=== PATIENT | female | born 1960 | race Caucasian/White ===

== ENCOUNTER 2017-11-13 13:59 | Emergency (ER) | payer OTHER ==
[~2017-11-13] VITALS: Ht 170.2 cm; Wt 99.8 kg
[~2017-11-13 13:59] MED LIST: ALBU90OI INH; AZIT250 PO; Amoxicillin500 MG PO; Ativan0.5 MG PO; CYCL10 PO; DICL25ER PO; DOXY100 PO; DULO30 PO; DULO60 PO; ERGO50000 PO; HYDACE5 PO; HYDGUAL120 PO; HYDHCL25 PO; LOPE2C PO; LORA1 PO; MELO7.5 PO; NAPR500; NAPR550 PO; Norco 5-325 Ta1 EACH PO; OXYACE5T PO; PRED20 PO; ROPI2 PO; RXALBOI INH; RXCYCL10 PO; RXHYDACE PO; RXNAPNA550 PO; Requip PO; SPACE CHAMBER1 EACH MC; TRAZ50 PO; Zithromax250 MG PO; Zofran8 MG PO; [UNRECOGNIZED DRUG - REMARK]
[2017-11-13 14:54] LABS: BASOPHILS ABSOLUTE AUTO 0.03 K/mm3 (0.00-0.23); BASOPHILS PERCENT AUTO 0 % (0-2); EOSINOPHILS ABSOLUTE AUTO 0.14 K/mm3 (0.00-0.68); EOSINOPHILS PERCENT AUTO 2 % (0-6); Hematocrit 43.3 % (33.0-51.0); Hemoglobin 14.5 g/dL (11.5-16.0); IMMATURE GRAN ABSOLUTE AUTO 0.02 K/mm3 (0.00-0.10); IMMATURE GRAN PERCENT AUTO 0 % (0-1); LYMPHOCYTES ABSOLUTE AUTO 2.92 K/mm3 (0.84-5.20); LYMPHOCYTES PERCENT AUTO 35 % (21-46); MONOCYTES ABSOLUTE AUTO 0.91 K/mm3 (0.16-1.47); MONOCYTES PERCENT AUTO 11 % (4-13); Mean Corpuscular HGB 30.3 pg (26.0-34.0); Mean Corpuscular HGB Conc 33.5 g/dL (31.5-36.5); Mean Corpuscular Volume 90 fL (80-100); Mean Platelet Volume 10.3 fL (9.1-12.4); NEUTROPHILS ABSOLUTE AUTO 4.34 K/mm3 (1.96-9.15); NEUTROPHILS PERCENT AUTO 52 % (41-73); Platelet Count 281 K/mm3 (150-400); RDW Coefficient Variation 13.2 % (11.7-14.2); RDW Standard Deviation 44.7 fL (35.1-46.3); Red Blood Cell Count 4.79 M/mm3 (3.80-5.20); White Blood Cell Count 8.36 K/mm3 (4.00-11.30)
[2017-11-13] MEDS ORDERED: Ativan1 MG SL (15:33)
[2017-11-13] MEDS ORDERED: Desyrel50 MG PO (15:33)
[2017-11-13] MEDS ORDERED: IBUP600 PO (15:33)
[2017-11-13 15:58] LABS: Troponin I <0.015 ng/mL (0.000-0.040)
[2017-11-13 16:09] LABS: Alanine Aminotransfer (ALT/SGP 21 U/L (12-78); Albumin/Globulin Ratio 1.3 (0.8-1.8); Alk Phos 46 U/L (50-136); Anion Gap 8 mmol/L (6-16); Aspartate Aminotrans (AST/SGOT 13 U/L (12-37); Bilirubin, Total 0.2 mg/dL (0.1-1.0); Blood Urea Nitrogen 12 mg/dL (8-24); Bun/Creatinine Ratio 22.3 (12.0-20.0); CO2, Blood 24 mmol/L (21-32); Chloride, Blood 108 mmol/L (98-108); Creatinine, Blood 0.54 mg/dL (0.40-1.00); Glomerular Filtration Rate >60 (60-); Glucose, Blood 93 mg/dL (70-99); Potassium, Blood 4.1 mmol/L (3.5-5.5); Sodium, Blood 140 mmol/L (136-145)
== END 2017-11-13 16:06 | disposition home or self-care (01) ==
LOC: ER 13:59
PROVIDERS: Emergency Medicine
DX: G47.00 Insomnia, unspecified (principal); F32.9 Major depressive disorder, single episode, unspecified; M25.562 Pain in left knee; F17.210 Nicotine dependence, cigarettes, uncomplicated
CPT/HCPCS: 36415; 80053; 84443; 84484; 85025; 93005; 93010; 99284; J2060

== ENCOUNTER 2017-12-01 16:47 | Emergency (ER) | payer OTHER ==
[~2017-12-01] VITALS: Ht 170.2 cm; Wt 104.3 kg
[~2017-12-01 16:47] MED LIST changes: +Ativan1 MG SL; +Desyrel50 MG PO; +IBUP600 PO
[2017-12-01] MEDS ORDERED: TRAZ100 PO (17:12)
[2017-12-01 17:29] LABS: BASOPHILS ABSOLUTE AUTO 0.02 K/mm3 (0.00-0.23); BASOPHILS PERCENT AUTO 0 % (0-2); EOSINOPHILS ABSOLUTE AUTO 0.16 K/mm3 (0.00-0.68); EOSINOPHILS PERCENT AUTO 2 % (0-6); Hemoglobin 14.4 g/dL (11.5-16.0); IMMATURE GRAN ABSOLUTE AUTO 0.02 K/mm3 (0.00-0.10); IMMATURE GRAN PERCENT AUTO 0 % (0-1); LYMPHOCYTES ABSOLUTE AUTO 2.77 K/mm3 (0.84-5.20); LYMPHOCYTES PERCENT AUTO 31 % (21-46); MONOCYTES ABSOLUTE AUTO 0.75 K/mm3 (0.16-1.47); MONOCYTES PERCENT AUTO 9 % (4-13); Mean Corpuscular HGB 30.1 pg (26.0-34.0); Mean Corpuscular HGB Conc 33.5 g/dL (31.5-36.5); Mean Corpuscular Volume 90 fL (80-100); Mean Platelet Volume 10.4 fL (9.1-12.4); NEUTROPHILS ABSOLUTE AUTO 5.14 K/mm3 (1.96-9.15); NEUTROPHILS PERCENT AUTO 58 % (41-73); Platelet Count 295 K/mm3 (150-400); RDW Coefficient Variation 13.5 % (11.7-14.2); RDW Standard Deviation 44.8 fL (35.1-46.3); Red Blood Cell Count 4.78 M/mm3 (3.80-5.20); White Blood Cell Count 8.86 K/mm3 (4.00-11.30)
[2017-12-01 17:54] LABS: Alanine Aminotransfer (ALT/SGP 27 U/L (12-78); Albumin, Blood 3.9 g/dL (3.4-5.0); Albumin/Globulin Ratio 1.2 (0.8-1.8); Alk Phos 47 U/L (50-136); Anion Gap 7 mmol/L (6-16); Aspartate Aminotrans (AST/SGOT 14 U/L (12-37); Bilirubin, Total 0.2 mg/dL (0.1-1.0); Blood Urea Nitrogen 13 mg/dL (8-24); Bun/Creatinine Ratio 21.1 (12.0-20.0); CO2, Blood 29 mmol/L (21-32); Calcium, Blood 9.2 mg/dL (8.5-10.1); Chloride, Blood 103 mmol/L (98-108); Creatinine, Blood 0.62 mg/dL (0.40-1.00); Globulin, Blood 3.3 g/dL (2.2-4.0); Glomerular Filtration Rate >60 (60-); Glucose, Blood 89 mg/dL (70-99); Potassium, Blood 3.7 mmol/L (3.5-5.5); Sodium, Blood 139 mmol/L (136-145); Total Protein, Blood 7.2 g/dL (6.4-8.2); Troponin I <0.015 ng/mL (0.000-0.040)
[2017-12-01] MEDS ORDERED: IBUP600 PO (19:16)
[2017-12-01] MEDS ORDERED: SACC250C PO (19:16)
== END 2017-12-01 19:32 | disposition home or self-care (01) ==
LOC: ER 16:47
PROVIDERS: Physician Assistant
DX: R07.89 Other chest pain (principal); F32.9 Major depressive disorder, single episode, unspecified; F17.210 Nicotine dependence, cigarettes, uncomplicated; Z79.899 Other long term (current) drug therapy
CPT/HCPCS: 36415; 71046; 80053; 84484; 85025; 93005; 93010; 96374; 99284; J1885

== ENCOUNTER 2019-04-06 13:30 | Emergency (ER) | payer OTHER ==
[~2019-04-06] VITALS: Ht 170.2 cm; Wt 111.6 kg
[~2019-04-06 13:30] MED LIST changes: +SACC250C PO; +TRAZ100 PO
[2019-04-06] MEDS ORDERED: FURO20 (13:44)
[2019-04-06 13:55] LABS: Source, Urine Clean Catch
[2019-04-06 14:04] LABS: Bilirubin, Urine Neg (Neg); Blood, Urine Neg (Neg); Glucose Qualitative, Urine Neg (Neg); Ketones, Urine 2+ (Neg); Leukocyte Esterase, Urine Neg (Neg); Nitrite, Urine Neg (Neg); Protein, Urine 2+ (Neg); Specific Gravity, Urine 1.025 (1.003-1.022); Urobilinogen, Urine 1+ (Normal)
[2019-04-06 14:18] LABS: Appearance, Urine Hazy (Clear); Color, Urine Yellow (P-Yellow)
[2019-04-06 14:19] LABS: Red Blood Cells, Urine 0-2 /hpf (0-2); Squamous Epithelial Cells Many /hpf (Few); White Blood Cells, Urine 0-2 /hpf (0-5)
[2019-04-06 14:20] LABS: Bacteria Rare /hpf; Calcium Oxalate Crystals Mod /hpf
[2019-04-06] MEDS ORDERED: Norco 5-325 Ta1 EACH PO (15:49)
[2019-04-06] MEDS ORDERED: NAPR550 PO (15:49)
== END 2019-04-06 16:14 | disposition home or self-care (01) ==
LOC: ER 13:30
PROVIDERS: Emergency Medicine
DX: M54.16 Radiculopathy, lumbar region (principal); F32.9 Major depressive disorder, single episode, unspecified; Z79.899 Other long term (current) drug therapy
CPT/HCPCS: 72100; 81001; 96372; 99284-25; J1170; J1885; J2550

== ENCOUNTER 2019-09-17 19:55 | Emergency (ER) | payer OTHER ==
[~2019-09-17] VITALS: Ht 170.2 cm; Wt 108.9 kg
[~2019-09-17 19:55] MED LIST changes: +FURO20
[2019-09-17] MEDS ORDERED: GABA300 PO (20:03)
[2019-09-17] MEDS ORDERED: KETO10 PO (20:40)
== END 2019-09-17 21:13 | disposition home or self-care (01) ==
LOC: ER 19:55
DX: G89.29 Other chronic pain (principal); M54.5 Low back pain; F32.9 Major depressive disorder, single episode, unspecified; Z79.899 Other long term (current) drug therapy
CPT/HCPCS: 36415; 93005; 93010; 96374; 99283-25; J1170

== ENCOUNTER 2019-09-26 03:43 | Emergency (ER) | payer OTHER ==
[~2019-09-26] VITALS: Ht 170.2 cm; Wt 108.0 kg
[~2019-09-26 03:43] MED LIST changes: +GABA300 PO; +KETO10 PO
[2019-09-26] MEDS ORDERED: HYDR1TAB94 PO (07:47)
[2019-09-26] MEDS ORDERED: IBUP400 PO (07:47)
== END 2019-09-26 09:19 | disposition home or self-care (01) ==
LOC: ER 03:43
DX: M54.40 Lumbago with sciatica, unspecified side (principal); F41.9 Anxiety disorder, unspecified; F17.210 Nicotine dependence, cigarettes, uncomplicated; G25.81 Restless legs syndrome; Z79.899 Other long term (current) drug therapy
CPT/HCPCS: 96372; 99283-25; J1885

== ENCOUNTER 2019-11-03 17:48 | Emergency (ER) | payer OTHER ==
[~2019-11-03] VITALS: Ht 170.2 cm; Wt 108.4 kg
[~2019-11-03 17:48] MED LIST changes: +HYDR1TAB94 PO; +IBUP400 PO
[2019-11-04] MEDS ORDERED: ZOLPIDEM TARTRA10 MG PO (04:48)
[2019-11-04] MEDS ORDERED: Lovenox80 MG/0.8 SC (08:47)
== END 2019-11-03 19:20 | disposition left against medical advice (07) ==
LOC: ER 17:48
DX: G89.18 Other acute postprocedural pain (principal); Z53.20 Procedure and treatment not carried out because of patient's decision for unspecified reasons
CPT/HCPCS: 93971

== ENCOUNTER 2019-12-27 18:26 | Emergency (ER) | payer OTHER ==
[~2019-12-27] VITALS: Ht 170.2 cm; Wt 63.5 kg
[~2019-12-27 18:26] MED LIST changes: +Lovenox80 MG/0.8 SC; +ZOLPIDEM TARTRA10 MG PO
[2019-12-27] MEDS ORDERED: TRAZ100 PO (18:49)
[2019-12-27] MEDS ORDERED: Zanaflex2 M1 PO (18:49)
[2019-12-27 19:17] LABS: BASOPHILS ABSOLUTE AUTO 0.02 K/mm3 (0.00-0.23); BASOPHILS PERCENT AUTO 0 % (0-2); EOSINOPHILS ABSOLUTE AUTO 0.22 K/mm3 (0.00-0.68); EOSINOPHILS PERCENT AUTO 3 % (0-6); IMMATURE GRAN ABSOLUTE AUTO 0.01 K/mm3 (0.00-0.10); IMMATURE GRAN PERCENT AUTO 0 % (0-1); LYMPHOCYTES ABSOLUTE AUTO 2.85 K/mm3 (0.84-5.20); LYMPHOCYTES PERCENT AUTO 41 % (21-46); MONOCYTES PERCENT AUTO 9 % (4-13); Mean Corpuscular HGB 29.7 pg (26.0-34.0); Mean Corpuscular HGB Conc 32.6 g/dL (31.5-36.5); Mean Corpuscular Volume 91 fL (80-100); Mean Platelet Volume 10.1 fL (9.1-12.4); NEUTROPHILS ABSOLUTE AUTO 3.32 K/mm3 (1.96-9.15); NEUTROPHILS PERCENT AUTO 47 % (41-73); Platelet Count 303 K/mm3 (150-400); RDW Coefficient Variation 13.8 % (11.7-14.2); RDW Standard Deviation 46.8 fL (35.1-46.3); Red Blood Cell Count 4.71 M/mm3 (3.80-5.20); White Blood Cell Count 7.02 K/mm3 (4.00-11.30)
[2019-12-27 19:38] LABS: Alanine Aminotransfer (ALT/SGP 31 U/L (12-78); Albumin, Blood 3.9 g/dL (3.4-5.0); Albumin/Globulin Ratio 1.3 (0.8-1.8); Alk Phos 67 U/L (50-136); Anion Gap 5 mmol/L (6-16); Aspartate Aminotrans (AST/SGOT 15 U/L (12-37); Bilirubin, Total 0.1 mg/dL (0.1-1.0); Blood Urea Nitrogen 19 mg/dL (8-24); Bun/Creatinine Ratio 32.8 (12.0-20.0); CO2, Blood 27 mmol/L (21-32); Calcium, Blood 9.1 mg/dL (8.5-10.1); Chloride, Blood 110 mmol/L (98-108); Creatinine, Blood 0.58 mg/dL (0.40-1.00); Globulin, Blood 3.1 g/dL (2.2-4.0); Glomerular Filtration Rate >60 (60-); Glucose, Blood 116 mg/dL (70-99); Sodium, Blood 142 mmol/L (136-145)
== END 2019-12-27 21:00 | disposition home or self-care (01) ==
LOC: ER 18:26
PROVIDERS: Nurse Practitioner
DX: G89.18 Other acute postprocedural pain (principal); M25.561 Pain in right knee; F32.9 Major depressive disorder, single episode, unspecified; F17.210 Nicotine dependence, cigarettes, uncomplicated; Z79.899 Other long term (current) drug therapy; Z96.651 Presence of right artificial knee joint
CPT/HCPCS: 36415; 73562-RT; 80053; 85025; 93971; 96374; 99284-25; J1885

== ENCOUNTER 2020-04-10 19:12 | Emergency (ER) | payer OTHER ==
[~2020-04-10] VITALS: Ht 170.2 cm; Wt 108.9 kg
[~2020-04-10 19:12] MED LIST changes: +Zanaflex2 M1 PO
[2020-04-10] MEDS ORDERED: TIZA4 PO (19:53)
[2020-04-10] MEDS ORDERED: KETO10 PO (19:53)
== END 2020-04-10 20:22 | disposition home or self-care (01) ==
LOC: ER 19:12
DX: M54.12 Radiculopathy, cervical region (principal); F32.9 Major depressive disorder, single episode, unspecified; Z79.899 Other long term (current) drug therapy; F17.210 Nicotine dependence, cigarettes, uncomplicated
CPT/HCPCS: 96372; 99283-25; J1885

== ENCOUNTER 2020-11-27 19:19 | Emergency (ER) | payer OTHER ==
[~2020-11-27] VITALS: Ht 170.2 cm; Wt 104.8 kg
[~2020-11-27 19:19] MED LIST changes: +TIZA4 PO
[2020-11-27] MEDS ORDERED: Valium5 MG PO (21:49)
== END 2020-11-27 22:14 | disposition home or self-care (01) ==
LOC: ER 19:19
DX: M43.6 Torticollis (principal); F17.210 Nicotine dependence, cigarettes, uncomplicated; Z79.899 Other long term (current) drug therapy
CPT/HCPCS: 96372; 99283-25; A9270; J1885

== ENCOUNTER 2022-03-05 11:53 | Emergency (ER) | payer OTHER ==
[~2022-03-05] VITALS: Ht 170.2 cm; Wt 107.5 kg
[~2022-03-05 11:53] MED LIST changes: +LIDO700A20 TOP; +Valium5 MG PO
== END 2022-03-05 15:51 | disposition left against medical advice (07) ==
LOC: ER 11:53
DX: M54.50 Low back pain, unspecified (principal); M54.10 Radiculopathy, site unspecified; R10.2 Pelvic and perineal pain; Z53.21 Procedure and treatment not carried out due to patient leaving prior to being seen by health care provider
CPT/HCPCS: 72100

== ENCOUNTER 2023-03-08 10:57 | Emergency (ER) | payer OTHER ==
[~2023-03-08] VITALS: Ht 170.2 cm; Wt 105.7 kg
[2023-03-08] MEDS ORDERED: Robaxin750 MG PO (12:47)
[2023-03-08 12:59] VITALS: BP 149/81
== END 2023-03-08 13:00 | disposition home or self-care (01) ==
LOC: ER 10:57
DX: S76.912A Strain of unspecified muscles, fascia and tendons at thigh level, left thigh, initial encounter (principal); F17.210 Nicotine dependence, cigarettes, uncomplicated; X58.XXXA Exposure to other specified factors, initial encounter
CPT/HCPCS: 73502; 93971; 96372; 99284-25; J1885

== ENCOUNTER 2023-06-11 02:29 | Emergency (ER) | payer OTHER ==
[~2023-06-11] VITALS: Ht 170.2 cm; Wt 104.3 kg
[~2023-06-11 02:29] MED LIST changes: +Robaxin750 MG PO
[2023-06-11 02:48] VITALS: BP 173/85
[2023-06-11] MEDS ORDERED: CYCL10 PO (03:24)
== END 2023-06-11 03:31 | disposition home or self-care (01) ==
LOC: ER 02:29
DX: M62.838 Other muscle spasm (principal); F41.9 Anxiety disorder, unspecified; F17.210 Nicotine dependence, cigarettes, uncomplicated
CPT/HCPCS: 96372; 99283-25; A9270; J1885

== ENCOUNTER 2024-01-21 09:22 | Emergency (ER) | payer OTHER ==
[~2024-01-21] VITALS: Ht 170.2 cm; Wt 105.7 kg
[~2024-01-21 09:22] MED LIST changes: +HYDROCODONE-AC1 EA19 PO; +LOSA50 PO; +PANTOPRAZOLE SO2010 PO; +PRAMIPEXOLE0.125 M1 PO; +PREG150 PO
[2024-01-21 10:07] VITALS: BP 162/102
[2024-01-21] MEDS ORDERED: Ketorolac Tromethamine 30mg Vial IM ONE (10:30)
[2024-01-21] MEDS ORDERED: IBU600 M1 PO (10:32)
[2024-01-21] MEDS ORDERED: Robaxin750 MG PO (10:32)
== END 2024-01-21 11:01 | disposition home or self-care (01) ==
LOC: ER 09:22
DX: G57.02 Lesion of sciatic nerve, left lower limb (principal); Z79.899 Other long term (current) drug therapy
CPT/HCPCS: 96372; 99282-25; J1885

== ENCOUNTER → 2024-06-07 | Emergency (ER) | payer OTHER ==
[~2024-06-07] VITALS: Ht 170.2 cm; Wt 150.1 kg
[~2024-06-07] MED LIST changes: +HYDROcodone 5-APAP 325 TAB PO ONE; +IBU600 M1 PO
[2024-06-07 19:03] VITALS: BP 163/74
== END ==
LOC: ER 18:58
DX: S76.011A Strain of muscle, fascia and tendon of right hip, initial encounter (principal); W18.30XA Fall on same level, unspecified, initial encounter; Z79.899 Other long term (current) drug therapy
CPT/HCPCS: 73502; A9270

== ENCOUNTER → 2024-07-31 | Outpatient (CLI) | payer OTHER ==
[~2024-07-31] MED LIST changes: -HYDROcodone 5-APAP 325 TAB PO ONE
== END | disposition home or self-care (01) ==
LOC: PLD 07:39 → LAB 07:39 → LAB SHORT 07:39
DX: B35.1 Tinea unguium (principal); L60.2 Onychogryphosis
CPT/HCPCS: 88305; 88312

== ENCOUNTER 2024-09-29 09:29 | Emergency (ER) | payer OTHER ==
[~2024-09-29] VITALS: Ht 170.2 cm; Wt 108.9 kg
[2024-09-29 09:37] VITALS: BP 124/101
[2024-09-29 10:58] LABS: Source, Urine Clean Catch
[2024-09-29 11:07] LABS: Blood, Urine Neg (Neg); Glucose Qualitative, Urine Neg (Neg); Ketones, Urine 2+ (Neg); Leukocyte Esterase, Urine 1+ (Neg); Nitrite, Urine Pos (Neg); Protein, Urine 3+ (Neg); Specific Gravity, Urine 1.025 (1.003-1.022); Urobilinogen, Urine 2+ (Normal)
[2024-09-29] MEDS ORDERED: Methocarbamol 500 MG Tab PO ONE (11:10)
[2024-09-29 11:25] LABS: Amorphous Light (0-Heavy); Appearance, Urine Hazy (Clear); Bacteria Mod /hpf; Bilirubin, Urine 2+ (Neg); Color, Urine Yellow (P-Yellow); Mucus Light (0-Heavy); Red Blood Cells, Urine 0-2 /hpf (0-2); Squamous Epithelial Cells Few /hpf (Few)
[2024-09-29] MEDS ORDERED: NITR100CA PO (11:42)
[2024-09-29] MEDS ORDERED: Robaxin750 MG PO (11:42)
== END 2024-09-29 11:50 | disposition home or self-care (01) ==
LOC: ER 09:29
PROVIDERS: Physician Assistant
DX: N39.0 Urinary tract infection, site not specified (principal); M62.830 Muscle spasm of back; Z79.899 Other long term (current) drug therapy
CPT/HCPCS: 81001; 87086; 99284; A9270

== ENCOUNTER 2024-12-16 00:05 | Emergency (ER) | payer OTHER ==
[~2024-12-16] VITALS: Ht 162.6 cm; Wt 105.2 kg
[~2024-12-16 00:05] MED LIST changes: +NITR100CA PO
[2024-12-16 00:34] VITALS: BP 152/87
[2024-12-16] MEDS ORDERED: OxyCODONE 5 mg/Acetamin 325 mg TABLET PO ONE (00:35)
[2024-12-16] MEDS ORDERED: METSALMENC TOP (01:25)
[2024-12-16] MEDS ORDERED: RX Prepack 6 Tabs Oxycodone 5mg UD ONE (01:25)
== END 2024-12-16 01:38 | disposition home or self-care (01) ==
LOC: ER 00:05
DX: M25.551 Pain in right hip (principal); M25.561 Pain in right knee; W01.0XXA Fall on same level from slipping, tripping and stumbling without subsequent striking against object, initial encounter; F17.210 Nicotine dependence, cigarettes, uncomplicated; Z79.1 Long term (current) use of non-steroidal anti-inflammatories (NSAID); Z79.83 Long term (current) use of bisphosphonates; Z79.899 Other long term (current) drug therapy; Z79.811 Long term (current) use of aromatase inhibitors; Z79.2 Long term (current) use of antibiotics; Z79.891 Long term (current) use of opiate analgesic
CPT/HCPCS: 73502; 73560-RT; 99283-25; A9270

== ENCOUNTER 2025-08-25 13:03 | Emergency (ER) | payer OTHER ==
[~2025-08-25] VITALS: Ht 170.2 cm; Wt 104.3 kg
[~2025-08-25 13:03] MED LIST changes: +METSALMENC TOP; +PRAM.125 PO; +PROP10 PO
[2025-08-25] MEDS ORDERED: ERGO400 (14:07)
[2025-08-25 15:30] VITALS: BP 162/89
== END 2025-08-25 15:45 | disposition left against medical advice (07) ==
LOC: ER 13:03
DX: M25.552 Pain in left hip (principal); F17.210 Nicotine dependence, cigarettes, uncomplicated; Z79.899 Other long term (current) drug therapy
CPT/HCPCS: 73502; 99283-25